=== PATIENT | female | born 1940 ===

== ENCOUNTER 2018-04-01 10:08 | Inpatient (IN) | payer OTHER ==
[~2018-04-01] VITALS: Ht 165.1 cm; Wt 44.5 kg
[2018-04-01] MEDS ORDERED: COZAAR50 MG PO (11:28)
[2018-04-01] MEDS ORDERED: NORVASC5 MG PO (11:28)
[2018-04-07] MEDS ORDERED: GAS RELIEF 8080 MG PO (19:36)
[2018-04-07] MEDS ORDERED: COLACE100 MG PO (19:36)
== END 2018-04-07 19:43 | DRG 742 ==
LOC: OB/GYN 04-03 06:00 → O/R 04-03 06:00 → SURG 04-03 10:07 → OB/GYN 04-03 15:50 → SURG 04-03 21:45 → OB/GYN 04-07 19:43
PROVIDERS: Obstetrics & Gynecology Gynecologic Oncology
PROC: 0UT20ZZ Resection of Bilateral Ovaries, Open Approach (ICD-10-PCS; 2018-04-03)
PROC: 0UT70ZZ Resection of Bilateral Fallopian Tubes, Open Approach (ICD-10-PCS; 2018-04-03)
PROC: 0UT90ZZ Resection of Uterus, Open Approach (ICD-10-PCS; principal; 2018-04-03 21:45)
DX: D25.1 Intramural leiomyoma of uterus (principal); K56.0 Paralytic ileus; K91.89 Other postprocedural complications and disorders of digestive system; D25.0 Submucous leiomyoma of uterus; D25.2 Subserosal leiomyoma of uterus; K59.01 Slow transit constipation; I10 Essential (primary) hypertension